=== PATIENT | male | born 1980 | race Caucasian/White ===

== ENCOUNTER 2016-12-04 08:46 | Emergency (ER) | payer OTHER, BC ==
[~2016-12-04] VITALS: Ht 175.3 cm; Wt 81.6 kg
[2016-12-04 08:51] VITALS: BP 147/97; PULSE 84; RESP 16; TEMP 97.5; O2SAT 98
--- NOTE | 2016-12-04 08:58 | NUR ---
RECEIVED PT IN BED #3, PT WITH INJURY TO LEFT ANKLE S/P HITTING IT ON A BOX. PT STATES PAIN TO ANKLE AREA, LIMITED ROM WITHOUT PAIN.
--- NOTE | 2016-12-04 08:58 | NUR ---
Patient to ER bed 3 to gown for evaluation. Side rails up. Report given to Grecia GUO.
--- NOTE | 2016-12-04 09:10 | NUR ---
DR FORRESTER AT BEDSIDE FOR EVALUATION
--- NOTE | 2016-12-04 09:15 | NUR ---
XRAYS BEING DONE AT BEDSIDE.
--- NOTE | 2016-12-04 09:55 | NUR ---
DR FORRESTER AT BEDSIDE FOR RE-EVALUATION
--- NOTE | 2016-12-04 10:20 | NUR ---
LARGE BLACK VELCRO BOOT PLACED ON PT. PT TOLERATED IT WELL .
--- NOTE | 2016-12-04 10:34 | NUR ---
Patient given written and verbal discharge instructions and verbalizes understanding. ER MD discussed with patient the results and treatment provided. Given copies of tests performed in ER. Patient in stable condition. ID arm band removed. Rx of MOTRIN given. Patient educated on pain management and to follow up with PMD. Pain Scale 0/10. Opportunity for questions provided and answered.
[2016-12-04 10:35] VITALS: BP 118/81; PULSE 87; RESP 19; O2SAT 99
== END 2016-12-04 10:35 | disposition home or self-care (01) ==
LOC: SED 08:46
DX: S93.402A Sprain of unspecified ligament of left ankle, initial encounter (principal); W22.8XXA Striking against or struck by other objects, initial encounter; Y93.89 Activity, other specified; Y92.89 Other specified places as the place of occurrence of the external cause; Y99.8 Other external cause status
CPT/HCPCS: 99284